=== PATIENT | female | born 1945 | race Caucasian/White ===

== ENCOUNTER → 2018-07-11 10:01 | Outpatient (CLI) | payer MEDICARE, SELFPAY ==
[2018-07-11 12:18] LABS: Prealbumin 25.8 mg/dL (20.0-40.0)
== END ==
PROVIDERS: Visit Provider Family Medicine
DX: E46 Unspecified protein-calorie malnutrition (principal); R79.89 Other specified abnormal findings of blood chemistry
CPT/HCPCS: 36415; 84134

== ENCOUNTER → 2018-08-25 16:47 | Outpatient (CLI) | payer MEDICARE, SELFPAY | PROVIDERS: Family Provider Family Medicine; PCP Family Medicine; Visit Provider Family Medicine | DX: R41.0 Disorientation, unspecified (principal) | CPT/HCPCS: 87086; 87088 ==

== ENCOUNTER → 2018-09-21 16:13 | Outpatient (CLI) | payer MEDICARE, SELFPAY ==
[2018-09-21 17:36] LABS: Absolute Lymphocyte Count 1.07 X10^3/ul (0.83-4.51); Absolute Neutrophil Count 5.8 X10^3/uL (2.0-7.7); Basophil# 0.02 X10^3/uL; Basophil% 0.3 % (0-1); Eosinophil# 0.12 X10^3/uL; Eosinophils% 1.6 % (0-5); Hematocrit 32.3 % (37-47); Hemoglobin 10.2 g/dl (12.0-15.0); Lymphocyte # 1.07 X10^3/ul (4.0); Lymphocyte % 14.3 % (19-41); Mean Corp Hgb Conc 31.6 g/gl (32-36); Mean Corpuscular Volume 101.3 fL (81-99); Mean Platelet Vol. 11.5 fl (6.2-12.0); Monocyte# 0.44 X10^3/uL; Monocyte% 5.9 % (0-10); Neutrophil # 5.82 X10^3/uL (2.7-7.7); Neutrophil % 77.6 % (47-70); Platelet Count 223 K/mm3 (150-450); RBC Distribution Width CV 14.7 % (11.6-14.6); RBC Distribution Width SD 53.1 fl (35.1-43.9); Red Blood Count 3.19 M/mm3 (4.2-5.4); White Blood Count 7.5 K/mm3 (4.4-11.0)
[2018-09-21 17:37] LABS: POSITIVE COUNT NO; POSITIVE DIFFERENTIAL NO; POSITIVE MORPHOLOGY NO
[2018-09-21 17:50] LABS: Vitamin B12 961 pg/mL (211-911)
[2018-09-21 17:53] LABS: ALB/GLOB Ratio 0.9 RATIO (0.9-2.4); AST(SGOT) 21 U/L (15-37); Alanine Aminotransfer ALT/SGPT 12 U/L (13-56); Albumin, Serum 3.7 g/dL (3.2-5.0); Alkaline Phosphatase 98 U/L (45-117); Anion Gap 9 (5-15); BUN 23 mg/dL (7-18); BUN/Creat Ratio 30.3 RATIO (10-20); Calcium,Total 8.7 mg/dL (8.5-10.1); Chloride 99 mmol/L (98-107); Creatinine, Serum 0.76 mg/dL (0.55-1.02); EST Glomerular Filtration Rate 79 mL/min (>60); Est Glom Filt Rate - Afr Amer 96 mL/min (>60); Ferritin 82 ng/mL (8-252); Globulin 3.9 g/dL (2.2-4.2); Glucose 136 mg/dL (74-106); Iron 32 ug/dL (50-170); Potassium 3.6 mmol/L (3.5-5.1); Protein, Total 7.6 g/dL (6.4-8.2); Sodium Level 136 mmol/L (136-145)
--- OUTSIDE RECORDS SUMMARY | 2018-11-07 21:52 | XMS RPT_ITS ---
:1945 Author Organization OHIP Care Team Providers Name Role Phone MARICARMEN ZUÑIGA Admitting Unavailable MARICARMEN ZUÑIGA Attending Unavailable TONYA RONDON Primary Care Unavailable YAKOV SUAZO Consulting Unavailable MARICARMEN ZUÑIGA Procedure Practitioner Unavailable SAMAN GREY Consulting Unavailable MARICARMEN ZUÑIGA Admitting Unavailable MARICARMEN ZUÑIGA Attending Unavailable TONAY RONDON Primary Care Unavailable DR. TONYA RONDON DO Attending Unavailable DR. TONYA RONDON DO Primary Care Unavailable Maricarmen Zuñiga Attending Unavailable PROVIDER, UNKNOWN Referring Unavailable Tonya Rondon Primary Care Unavailable GIGI WEBB Attending Unavailable Joseluis, Wu Gonzalez Admitting Unavailable Joseluis, Wu Gonzalez Attending Unavailable Joseluis, Wu Gonzalez Referring Unavailable Jhoana Gilliam Primary Care Unavailable Tonya Rondon Attending Unavailable Eric Sierra Primary Care Unavailable Tonya Rondon Attending Unavailable Eric Sierra Attending Unavailable Eric Sierra Primary Care Unavailable PROBLEMS PROBLEMS DATE TYPE CONDITION / CODE ATTENDING STATUS SOURCE 08/25/2018 Unknown R41.0 - Eric Sierra Active [place] Disorientation, Community unspecified / Hospital R41.0(ICD-10) Repository 08/17/2018 Active UNI PRIM CHONKO, Active [place] OSTEOARTHRITIS RT [facility] HIP / M16.11(ICD-10) Repository 08/17/2018 Principle UNI PRIM CHONKO, Active [place] Diagnosis OSTEOARTHRITIS RT [facility] HIP / M16.11(ICD-10) Repository 08/17/2018 Secondary PARKINSONS DISEASE / CHONKO, Active [place] Diagnosis G20(ICD-10) [facility] Hospital Repository 08/17/2018 Secondary ANXIETY DISORDER CHONKO, Active [place] Diagnosis UNSPECIFIED / [facility] F41.9(ICD-10) Repository 08/17/2018 Secondary PRESENCE LEFT CHONKO, Active [place] Diagnosis ARTIFICIAL HIP JOINT [facility] / Z96.642(ICD-10) Repository 08/17/2018 Secondary NURSING HOME USE NSAID CHONKO, Active [place] Diagnosis / Z79.1(ICD-10) [facility] Repository 08/04/2018 Active ENCOUNTER OTHER CHONKO, Active [place] PREPROCEDURAL EXAM / [facility] Z01.818(ICD-10) Repository 08/04/2018 Principle ENCOUNTER OTHER CHONKO, Active [place] Diagnosis PREPROCEDURAL EXAM / [facility] Z01.818(ICD-10) Repository 08/04/2018 Secondary UNI PRIM CHONKO, Active [place] Diagnosis OSTEOARTHRITIS RT [facility] HIP / M16.11(ICD-10) Repository 07/11/2018 Unknown E46 - Unspecified Malys, Tonya Active [place] protein-calorie Community malnutrition / Hospital E46(ICD-10) Repository 07/11/2018 Unknown R79.89 - Other Malys, Tonya Active [place] specified abnormal Community findings of blood Hospital chemistry / Repository R79.89(ICD-10) 04/20/2018 Admitting Unilateral primary Chonko, Active [facility] Diagnosis osteoarthritis, Maricarmen System right hip / Repository M16.11(ICD-10) PROCEDURES PROCEDURES DATE CODE DESCRIPTION STATUS SOURCE 08/08/2018 [id number](ICD-1 REPLACEMENT OF RIGHT Completed [place] 0) HIP JOINT WITH METAL Hospital Repository ON POLYETHYLENE SYNTHETIC SUBSTITUTE, UNCEMENTED, OPEN APPROACH RESULTS RESULTS PROGRESS Observed: 10/03/2018 Status: COMPLETED Source: [place] [address]:[address] [facility] REPOSITORY HNO ID: [id number] Author: Gigi Webb Service: (none) Author Type: Physician Type: Progress Notes Filed: 10/03/2018 1:02 PM Note Text: Tonya Rondon DO [address] [address] I had the pleasure of seeing Ms. France for follow up today. As you know she is a 72 year old right-handed female with a history of Idiopathic Parkinson's Disease since 2009 . The patient is seen along with family. History of Present Illness: She was last seen at in March we had decreased her interval from 4 hrs to 3.5 and added a dose. She did this but went back to 4 doses but at 3.5 hours because she sleeps more and it was hard taking medication 5 times a day. We had considered but not tried Rytary. She recently had her right hip replaced. She denies problems with balance and has not fallen. She denies problems with lightheadedness on standing. She denies problems with swallowing and denies problems with her speech. She has difficulty sleeping at night. Gets up and is anxious at times. She admits to problems with depression and anxiety. She admits to problems with memory. She has trouble with names. She admits to problems with hallucinations or delusions. This was when she was in the hospital with pain medications. Her medications are working in 20 minutes, and lasts for 3 hours. her benefit from medication is reliable. She hasn't had any more dyskinesia. Parkinson's Medications: 7AM 1030AM 2PM 530PM Bedtime Sinemet 25/100 1 1 1 1 Rasagiline 1 mg 1 Clonazepam 0.5 mg 1 Previous Parkinson's Medications: Carbidopa/levodopa and Rasagiline Allergies: Allergies As of Date: 10/03/2018 Allergen Noted Reaction VICODIN [HYDROCODONE-ACETAMINOPHE*10/31/2009 GI Upset Fully Assessed 10/03/2018 Current Medications: Current Outpatient Prescriptions: cyanocobalamin, vitamin B-12, (B-12 DOTS ORAL) Take by mouth once daily. ferrous sulfate (SLOW FE ORAL) Take by mouth. carbidopa-levodopa (SINEMET 25-100) 25-100 mg per tablet clonazePAM (KLONOPIN) 0.5 mg tablet Take 1 tablet by mouth daily at bedtime for 180 days. mirtazapine (REMERON) 15 mg tablet Take 1 tablet by mouth daily at bedtime. RASAGILINE MESYLATE (AZILECT ORAL) Take by mouth. No current facility-administered medications for this visit. Objective: BP 119/63 Pulse 87 Ht 5' 3 (1.60m) Wt 120 lb (54.4kg) SpO2 100% BMI 21.26 kg/(m2). General Description of Patient: Well appearing, comfortable Head:normocephalic, atraumatic Extremities: No leg edema, pulses intact, no rash or venous stasis changes. NEUROLOGIC: Mental Status: The patient is alert and oriented to person, place, date and situation Cranial Nerves: CN II-XII are intact. Motor: Motor strength is MRC 5/5 throughout See UPDRS. Movement disorders examination: To quantify parkinsonism, Part III of the Unified Parkinson?s Disease Rating Scale was performed and detailed in the succeeding sections in this report. Please see the neurological health status section or the next paragraph for details. Each item is scored from 0 to 4. In general, a score of 0 means normal; 1 means mild; 2 means moderate; 3 means moderate to severe; 4 means severe. Based on today's exam the patient is Rishi's and Yahr stage 2.5 (Mild bilateral disease, with recovery on pull test. Coordination/Gait: Normal base, Posture normal, Stride length good Sensory: Normal fine touch. Except numbness bilaterally laterally in both legs into lateral aspect of foot and posteriorly. Reflexes: Deep tendon reflexes are 2+ and symmetric throughout and bilateral plantar responses are flexor Parkinson Scales Performed: TIME 10:57 AM TIME OF LAST MEDICATION 7:00 AM SPEECH ON 1 FACIAL EXPRESSION ON 1 REST TREMOR - CRANIAL ON 0 REST TREMOR - HANDS RT ON 0 REST TREMOR - HANDS LT ON 0 REST TREMOR - FEET RT ON 0 REST TREMOR - FEET LT ON 0 ACTION TREMOR - RT ON 0 ACTION TREMOR - LT ON 0 RIGIDITY - NECK ON 1 RIGIDITY - UE - RT ON 1 RIGIDITY - UE - LT ON 1 RIGIDITY - LE - RT ON 0 RIGIDITY - LE - LT ON 0 FINGER TAPS - RT ON 0 FINGER TAPS - LT ON 1 HAND PASSENGER SERVICE AGENT - RT ON 1 HAND PASSENGER SERVICE AGENT - LT ON 2 PRONATE/SUPINATE - RT ON 1 PRONATE/SUPINATE - LT ON 2 LEG AGILITY - RT ON 1 LEG AGILITY - LT ON 2 ARISE FROM CHAIR ON 1 POSTURE ON 1 GAIT ON 1 POSTURAL STABILITY ON 1 BODY BRADYKINESIA ON 1 Assessment and Plan: Ms. France is a right-handed 72 year old female with idiopathic Parkinson's disease with left greater than right akinetic-rigid symptoms. Parkinson's disease (hcc) (primary encounter diagnosis) Depression, unspecified depression type Lumbar radiculopathy Plan: 1. Parkinson's disease - Stable, No changes today. 2. Start Remeron (Mirtazepine) 15 mg at bedtime - This may help sleep, depression, anxiety and appetite. Parkinson's Medications: 7AM 1030AM 2PM 530PM Bedtime Sinemet 25/100 1 1 1 1 Rasagiline 1 mg 1 Remeron 15 mg 1 Clonazepam 0.5 mg 1 Follow up: 4 months. Medical decision making was high complexity due to patient's, multiple symptoms, advancing disease, diagnostic difficulties. Total time spent in direct consultation was 40 minutes. Greater than 50% of the visit was spent counseling the patient. Thank you for allowing me to be part of the clinical care of this patient! I look forward to continued participation in the patient?s care with you. Please do not hesitate to call with any questions. Sincerely, Gigi Webb MD Staff Neurologist [facility] CNOV Observed: 10/03/2018 Status: COMPLETED Source: [place] 10:40 AM [facility] REPOSITORY Office Visit ([id number]) JOSEP FRANCE ([id number]) 1945 F Date Time Provider Department 10/03/18 10:40 AM GIGI WEBB [id number] During your visit today, we recorded the following information about you: Pulse Blood pressure Weight Height 87/minute 119/63 54.4 kg 1.6 m Gigi Webb MD 10/03/2018 1:02 PM Signed Tonya Rondon DO [address] [place] [address] I had the pleasure of seeing Ms. France for follow up today. As you know she is a 72 year old right-handed female with a history of Idiopathic Parkinson's Disease since 2009 . The patient is seen along with family. History of Present Illness: She was last seen at in March we had decreased her interval from 4 hrs to 3.5 and added a dose. She did this but went back to 4 doses but at 3.5 hours because she sleeps more and it was hard taking medication 5 times a day. We had considered but not tried Rytary. She recently had her right hip replaced. She denies problems with balance and has not fallen. She denies problems with lightheadedness on standing. She denies problems with swallowing and denies problems with her speech. She has difficulty sleeping at night. Gets up and is anxious at times. She admits to problems with depression and anxiety. She admits to problems with memory. She has trouble with names. She admits to problems with hallucinations or delusions. This was when she was in the hospital with pain medications. Her medications are working in 20 minutes, and lasts for 3 hours. her benefit from medication is reliable. She hasn't had any more dyskinesia. Parkinson's Medications: 7AM 1030AM 2PM 530PM Bedtime Sinemet 25/100 1 1 1 1 Rasagiline 1 mg 1 Clonazepam 0.5 mg 1 Previous Parkinson's Medications: Carbidopa/levodopa and Rasagiline Allergies: Allergies As of Date: 10/03/2018 Allergen Noted Reaction VICODIN [HYDROCODONE-ACETAMINOPHE*10/31/2009 GI Upset Fully Assessed 10/03/2018 Current Medications: Current Outpatient Prescriptions: cyanocobalamin, vitamin B-12, (B-12 DOTS ORAL) Take by mouth once daily. ferrous sulfate (SLOW FE ORAL) Take by mouth. carbidopa-levodopa (SINEMET 25-100) 25-100 mg per tablet clonazePAM (KLONOPIN) 0.5 mg tablet Take 1 tablet by mouth daily at bedtime for 180 days. mirtazapine (REMERON) 15 mg tablet Take 1 tablet by mouth daily at bedtime. RASAGILINE MESYLATE (AZILECT ORAL) Take by mouth. No current facility-administered medications for this visit. Objective: BP 119/63 Pulse 87 Ht 5' 3 (1.60m) Wt 120 lb (54.4kg) SpO2 100% BMI 21.26 kg/(m2). General Description of Patient: Well appearing, comfortable Head:normocephalic, atraumatic Extremities: No leg edema, pulses intact, no rash or venous stasis changes. NEUROLOGIC: Mental Status: The patient is alert and oriented to person, place, date and situation Cranial Nerves: CN II-XII are intact. Motor: Motor strength is MRC 5/5 throughout See UPDRS. Movement disorders examination: To quantify parkinsonism, Part III of the Unified Parkinson?s Disease Rating Scale was performed and detailed in the succeeding sections in this report. Please see the neurological health status section or the next paragraph for details. Each item is scored from 0 to 4. In general, a score of 0 means normal; 1 means mild; 2 means moderate; 3 means moderate to severe; 4 means severe. Based on today's exam the patient is Rishi's and Yahr stage 2.5 (Mild bilateral disease, with recovery on pull test. Coordination/Gait: Normal base, Posture normal, Stride length good Sensory: Normal fine touch. Except numbness bilaterally laterally in both legs into lateral aspect of foot and posteriorly. Reflexes: Deep tendon reflexes are 2+ and symmetric throughout and bilateral plantar responses are flexor Parkinson Scales Performed: TIME 10:57 AM TIME OF LAST MEDICATION 7:00 AM SPEECH ON 1 FACIAL EXPRESSION ON 1 REST TREMOR - CRANIAL ON 0 REST TREMOR - HANDS RT ON 0 REST TREMOR - HANDS LT ON 0 REST TREMOR - FEET RT ON 0 REST TREMOR - FEET LT ON 0 ACTION TREMOR - RT ON 0 ACTION TREMOR - LT ON 0 RIGIDITY - NECK ON 1 RIGIDITY - UE - RT ON 1 RIGIDITY - UE - LT ON 1 RIGIDITY - LE - RT ON 0 RIGIDITY - LE - LT ON 0 FINGER TAPS - RT ON 0 FINGER TAPS - LT ON 1 HAND PASSENGER SERVICE AGENT - RT ON 1 HAND PASSENGER SERVICE AGENT - LT ON 2 PRONATE/SUPINATE - RT ON 1 PRONATE/SUPINATE - LT ON 2 LEG AGILITY - RT ON 1 LEG AGILITY - LT ON 2 ARISE FROM CHAIR ON 1 POSTURE ON 1 GAIT ON 1 POSTURAL STABILITY ON 1 BODY BRADYKINESIA ON 1 Assessment and Plan: Ms. France is a right-handed 72 year old female with idiopathic Parkinson's disease with left greater than right akinetic-rigid symptoms. Parkinson's disease (hcc) (primary encounter diagnosis) Depression, unspecified depression type Lumbar radiculopathy Plan: 1. Parkinson's disease - Stable, No changes today. 2. Start Remeron (Mirtazepine) 15 mg at bedtime - This may help sleep, depression, anxiety and appetite. Parkinson's Medications: 7AM 1030AM 2PM 530PM Bedtime Sinemet 25/100 1 1 1 1 Rasagiline 1 mg 1 Remeron 15 mg 1 Clonazepam 0.5 mg 1 Follow up: 4 months. Medical decision making was high complexity due to patient's, multiple symptoms, advancing disease, diagnostic difficulties. Total time spent in direct consultation was 40 minutes. Greater than 50% of the visit was spent counseling the patient. Thank you for allowing me to be part of the clinical care of this patient! I look forward to continued participation in the patient?s care with you. Please do not hesitate to call with any questions. Sincerely, Gigi Webb MD Staff Neurologist [facility] Gigi Webb MD 10/03/2018 11:17 AM Addendum It was a pleasure to see you today. We addressed the following diagnoses: 1. Parkinson's disease (hcc) (primary encounter diagnosis) 2. Depression, unspecified depression type 3. Lumbar radiculopathy My recommendations are as follows: 1. Start Remeron (Mirtazepine) 15 mg at bedtime - This may help sleep, depression, anxiety and appetite. Parkinson's Medications: 7AM 1030AM 2PM 530PM Bedtime Sinemet 25/100 1 1 1 1 Rasagiline 1 mg 1 Remeron 15 mg 1 Clonazepam 0.5 mg 1 We would like to see you back in 4 months. If there are any concerns in the interim please call or you can send a message through [employer]. You can also now schedule and select appointments through [employer]. My office number is [phone]. Gigi Webb MD Referring Provider: SELF [200] Allergies As of Date: 10/03/2018 Noted Allergy Reaction VICODIN (HYDROCODONE-ACETAMINOPHE*10/31/2009 8 - GI Upset Date Reviewed: 10/03/2018 Reviewed by: Bhavana Salgado Ma - Fully Assessed Reason for Visit: Established Patient [175] Primary Visit Diagnosis:Parkinson's disease (HCC) [G20] Other Visit Diagnoses:Depression, unspecified depression type [F32.9] Lumbar radiculopathy [M54.16] Order(s):mirtazapine (REMERON) 15 mg tabletTake 1 tablet by mouth daily at bedtime.Disp: 30 tabletRfl: 11 Prescriptions as of 10/03/2018 Sig: B-12 DOTS ORAL Take by mouth once daily. SLOW FE ORAL Take by mouth. CARBIDOPA 25 MG-LEVODOPA 100 * CLONAZEPAM 0.5 MG TABLET Take 1 tablet by mouth daily * MIRTAZAPINE 15 MG TABLET Take 1 tablet by mouth daily * AZILECT ORAL Take by mouth. Problem List As Of Date 10/03/2018 Noted Resolved Hip pain [M25.559] INVALID FOR* Dysphagia, unspecified [R13.10] INVALID FOR* Senile cataract [H25.9] 07/31/2016 Vitreous degeneration [H43.819] Pseudophakia of right eye [Z96.1] INVALID FOR*07/31/2016 Pseudophakia [Z96.1] INVALID FOR* Other instructions from your clinician: It was a pleasure to see you today. We addressed the following diagnoses: 1. Parkinson's disease (hcc) (primary encounter diagnosis) 2. Depression, unspecified depression type 3. Lumbar radiculopathy My recommendations are as follows: 1. Start Remeron (Mirtazepine) 15 mg at bedtime - This may help sleep, depression, anxiety and appetite. Parkinson's Medications: 7AM 1030AM 2PM 530PM Bedtime Sinemet 25/100 1 1 1 1 Rasagiline 1 mg 1 Remeron 15 mg 1 Clonazepam 0.5 mg 1 We would like to see you back in 4 months. If there are any concerns in the interim please call or you can send a message through [employer]. You can also now schedule and select appointments through [employer]. My office number is [phone]. Gigi Webb MD Prescriptions ordered this encounter Disp Refills Start End MIRTAZAPINE 15 MG TABLET 30 t* 11 10/03/2018 10/03/2019 Route: ORAL Sig: Take 1 tablet by mouth daily at bedtime. Disposition: Return in about 4 months (around 02/01/2019) for Parkinson's Disease, [facility] preferred., Can be seen with Mendy Webb NP. Follow-up and Disposition History Recorded Questionnaire: UPDRS - MOTOR EXAMINATION ON time 1 -> 10:57 AM TIME LAST MED 1 -> 7:00 AM SPEECH ON -> 1 FACIAL EXPRESSION ON -> 1 REST TREMOR - CRANIAL ON -> 0 REST TREMOR - HANDS RT ON -> 0 REST TREMOR - HANDS LT ON -> 0 REST TREMOR - FEET RT ON -> 0 REST TREMOR - FEET LT ON -> 0 ACTION TREMOR - RT ON -> 0 ACTION TREMOR - LT ON -> 0 RIGIDITY - NECK ON -> 1 RIGIDITY - UE - RT ON -> 1 RIGIDITY - UE - LT ON -> 1 RIGIDITY - LE - RT ON -> 0 RIGIDITY - LE - LT ON -> 0 FINGER TAPS - RT ON -> 0 FINGER TAPS - LT ON -> 1 HAND PASSENGER SERVICE AGENT - RT ON -> 1 HAND PASSENGER SERVICE AGENT - LT ON -> 2 PRONATE/SUPINATE - RT ON -> 1 PRONATE/SUPINATE - LT ON -> 2 LEG AGILITY - RT ON -> 1 LEG AGILITY - LT ON -> 2 ARISE FROM CHAIR ON -> 1 POSTURE ON -> 1 GAIT ON -> 1 POSTURAL STABILITY ON -> 1 BODY BRADYKINESIA ON -> 1 Encounter Status:Closed by GIGI WEBB on 10/03/18 CBC W/DIFF, AUTOMATED Collected: 09/21/2018 Status: F Source: [place] 4:15 PM [facility] REPOSITORY TYPE CODE TESTS RESULT OUT OF RANGE REFERENCE UNITS LAB L100.1000 4.4-11.0 K/mm3 Normal WBC 7.5 LAB L100.1200 4.2-5.4 M/mm3 Low RBC 3.19 LAB L100.1300 12.0-15.0 g/dl Low HGB 10.2 LAB L100.1400 37-47 % Low HCT 32.3 LAB L100.1500 81-99 fL High MCV 101.3 LAB L100.1600 27.0-32.0 pg Normal MCH 32.0 LAB L100.1700 32-36 g/gl Low MCHC 31.6 LAB L100.1810 11.6-14.6 % High RDW CV 14.7 LAB L100.1820 35.1-43.9 fl High RDW SD 53.1 LAB L100.1900 150-450 K/mm3 Normal PLT 223 LAB L100.2000 6.2-12.0 fl Normal MPV 11.5 LAB L100.2100 47-70 % High NEUT% 77.6 LAB L100.2200 19-41 % Low LY% 14.3 LAB L100.2300 0-10 % Normal MONO% 5.9 LAB L100.2400 0-5 % Normal EO% 1.6 LAB L100.2500 0-1 % Normal BASO% 0.3 LAB L100.2550 0.0-0.9 % Normal IM GRAN % 0.300 Result Comment: IG% - Immature Granulocytes (promyelocytes, myelocytes and metamyelocytes) > 1% indicates that a LEFT SHIFT is Present. LAB L100.2620 2.0-7.7 X10 3/uL Normal Absolute Neut 5.8 LAB L100.2720 0.83-4.51 X10 3/ul Normal Absolute Lymph 1.07 Performed By: #### L100.0100 #### [facility] [address] [place], [place], [address] VITAMIN B12 Collected: 09/21/2018 Status: F Source: [place] 4:15 PM [facility] REPOSITORY TYPE CODE TESTS RESULT OUT OF REFERENCE UNITS RANGE LAB L503.0105 211-911 pg/mL High Vitamin B12 961 Performed By: #### L503.0105 #### [facility] [address] [place], [address] COMPREHENSIVE METABOLIC Collected: 09/21/2018 Status: F Source: [facility] 4:15 PM [facility] REPOSITORY TYPE CODE TESTS RESULT OUT OF RANGE REFERENCE UNITS LAB L501.0100 74-106 mg/dL High GLU 136 Result Comment: Fasting Glucose result greater than or equal to 126 mg/dL suggests DIABETES MELLITUS per A.D.A. criteria. Please note revised GLUCOSE reference range effective 2017. LAB L501.1000 7-18 mg/dL High BUN 23 LAB L501.1100 0.55-1.02 mg/dL Normal CREAT,SERUM 0.76 Result Comment: The validity of the calculated GFR AND GFRAA in patients over 70 years has not been determined. Clinical correlation is essential. LAB L501.1110 >60 mL/min Normal EST GFR 79 Result Comment: Non- GFR Calc LAB L501.1115 >60 mL/min Normal EST GFR - AA 96 Result Comment: GFR Calc LAB L501.1300 10-20 RATIO High BUN/CRE 30.3 LAB L501.1500 6.4-8.2 g/dL T Normal PROT 7.6 LAB L501.1800 3.2-5.0 g/dL Normal ALB 3.7 LAB L501.1950 2.2-4.2 g/dL Normal GLOB 3.9 LAB L501.2000 0.9-2.4 RATIO Normal A/G 0.9 LAB L501.2200 8.5-10.1 mg/dL CA Normal 8.7 LAB L501.4100 15-37 U/L Normal AST 21 LAB L501.4305 45-117 U/L Normal ALK P 98 LAB L501.4405 13-56 U/L Low ALT 12 LAB L501.4600 0.20-1.00 mg/dL T Normal BILI 0.30 LAB L501.5300 136-145 mmol/L NA Normal 136 LAB L501.5600 3.5-5.1 mmol/L K Normal 3.6 LAB L501.5900 98-107 mmol/L CL Normal 99 LAB L501.6100 21.0-32.0 mmol/L Normal CO2 28.0 LAB L501.6200 5-15 Normal GAP 9 Performed By: #### L500.4050, L503.6150, L503.6550 #### [facility] [address] [place], [address] IRON Collected: 09/21/2018 Status: F Source: [place] 4:15 PM [facility] REPOSITORY TYPE CODE TESTS RESULT OUT OF RANGE REFERENCE UNITS LAB L503.6150 50-170 ug/dL Low IRON 32 Performed By: #### L500.4050, L503.6150, L503.6550 #### [facility] [address] [place], [address] FERRITIN Collected: 09/21/2018 Status: F Source: [place] 4:15 PM [facility] REPOSITORY TYPE CODE TESTS RESULT OUT OF RANGE REFERENCE UNITS LAB L503.6550 8-252 ng/mL Normal FERRITIN 82 Performed By: #### L500.4050, L503.6150, L503.6550 #### [facility] [address] [place], [address] Observed: 08/25/2018 Status: F Source: [place] CULTURE, URINE 4:50 PM [facility] REPOSITORY Urine Culture Below infection level. ORGANISM 1: Mixed Gram Pos AND Gram Neg Org Meno Count 1000-10,000 Performed By: #### M100.0650 #### [facility] [address] [place], [address] XR CHEST PA AND Observed: 08/03/2018 Status: F Source: [facility] 1:02 PM [facility] REPOSITORY Clinical indications: Presurgical evaluation Views: 2 Comparisons: None Findings: Heart: Within normal limits. Mediastinum: Unremarkable. Lungs: Markedly hyperexpanded, with flattening of the hemidiaphragms and an increase in the overall AP dimensions of the thorax. Interstitium is diffusely prominent with moderate distortion of architecture. No acute infiltrate or effusion. No evidence of CHF or pneumothorax. Calcified granuloma is noted in the left upper lung. Osseous and soft tissue structures: Generally intact. Impression: Findings consistent with underlying obstructive lung disease, as detailed above. No definite evidence of new acute process or interval change when compared with previous exam. Report Dictated on Authenticated by: Lonny Zhou On: 08/03/2018 13:00 Read by: LONNY ZHOU MD Date: 08/03/2018 13:00 CBC WITH DIFF Collected: 08/03/2018 Status: F Source: [facility] 11:06 AM HOSPITAL REPOSITORY TYPE CODE TESTS RESULT OUT OF RANGE REFERENCE UNITS LAB WBC(LOINC) 3.6-10.3 x(10)3/cumm Normal WBC 5.6 LAB RBC(LOINC) 3.90-5.10 X(10)6/cumm Low RBC 3.71 LAB HGB(LOINC) 11.5-15.5 gm/dL Normal Hgb 12.1 LAB HCT(LOINC) 34.6-45.0 % Normal Hct 35.8 LAB MCV(LOINC) 81.3-96.7 fL Normal MCV 96.6 LAB MCH(LOINC) 27.2-33.6 pg Normal MCH 32.5 LAB MCHC(LOINC) 32.9-35.3 gm/dL Normal MCHC 33.7 LAB RDW(LOINC) 11.1-15.3 % Normal RDW 14.1 LAB PLT(LOINC) 138-367 x(10)3/cumm Normal PLT 186 LAB MPV(LOINC) 6.4-10.0 fL Normal MPV 9.7 LAB NE%(LOINC) 44.9-78.8 % Normal NE% 64.7 LAB LY%(LOINC) 12.2-42.6 % Normal LY% 24.9 LAB MO%(LOINC) 3.3-11.6 % Normal MO% 8.5 LAB EO%(LOINC) 0.0-6.1 % Normal EO% 1.4 LAB BA%(LOINC) 0.0-1.0 % Normal BA% 0.5 LAB NE#(LOINC) 1.3-7.4 x(10)3/cumm Normal NE# 3.6 LAB LY#(LOINC) 0.8-2.9 x(10)3/cumm Normal LY# 1.4 LAB MO#(LOINC) 0.2-0.8 x(10)3/cumm Normal MO# 0.5 LAB EO#(LOINC) 0.0-0.4 x(10)3/cumm Normal EO# 0.1 LAB BA#(LOINC) 0.0-0.1 x(10)3/cumm Normal BA# 0.0 LAB RBCMOR(LOIN C) RBC Morph LAB RBCMOR+(AVE NC) RBC Morph cont LAB PLTMOR(LOIN C) Plt Morph LAB WBCMOR(LOIN C) WBC Morph Performed By: #### CBCDIFF #### [address] [address] BASIC METABOLIC PANEL Collected: 08/03/2018 Status: F Source: [place] 11:06 AM [facility] REPOSITORY TYPE CODE TESTS RESULT OUT OF RANGE REFERENCE UNITS LAB NA(LOINC) 136-145 mmol/L Normal Sodium 139 LAB K(LOINC) 3.5-5.1 mmol/L Normal Potassium 4.2 LAB CL(LOINC) 98-107 mmol/L Normal Chloride 105 LAB C02(LOINC) 21-32 mmol/L C02 Normal 30 LAB GLU(LOINC) 74-106 mg/dL Normal Glucose 94 LAB BUN(LOINC) 7-18 mg/dL High BUN 22 LAB CREAT(LOIN 0.60-1.30 mg/dL C) Creat Normal 0.69 LAB CA(LOINC) 8.5-10.1 mg/dL Normal Calcium 8.9 LAB EGFR(LOINC >=60 mL/min/1.73 ) sqm eGFR Normal >60 LAB EGFR >=60 mL/min/1.73 AA(LOINC) sqm eGFR Normal -Amer >60 LAB ANGAP(LOIN C) Anion Normal Gap 4 Performed By: #### BMP #### [place] [id number] TYPE AND SCREEN Collected: 08/03/2018 Status: F Source: [facility] 11:06 AM HOSPITAL REPOSITORY TYPE CODE TESTS RESULT OUT OF RANGE REFERENCE UNITS LAB ABO(LOINC) B Patient ABO LAB RH(LOINC) Abnormal Patient Rh Positive LAB AB NEGATIVE SCREEN(AVE Normal NC) Ab Screen Negative Performed By: #### TYPSCRN #### [address] [address] PREALBUMIN Collected: 07/11/2018 Status: F Source: [place] 10:04 AM [facility] REPOSITORY TYPE CODE TESTS RESULT OUT OF RANGE REFERENCE UNITS LAB L506.0500 20.0-40.0 mg/dL Normal PREALBUMIN 25.8 Performed By: #### L506.0500 #### [facility] [address] [place], [place], [id number] CR HIP W/ PELVIS 2 Observed: 04/20/2018 Status: F Source: [facility] OR 3 VIEWS RIGHT 1:50 PM SYSTEM REPOSITORY Patient Name: JOSEP FRANCE Diagnostic Radiology Exam Date/Time 04/20/2018 09:20:01 EDT Exam CR Hip w/ Pelvis 2 or 3 Views Right n Ordering Physician MARICARMEN ZUÑIGA Accession Number [id number] CPT4 Codes 72502 () Reason For Exam RT HIP PAIN Report Examination: Right hip Clinical Indication: Pain. History of fall. Comparison: None Findings: AP view of the pelvis along with AP and frogleg lateral views of the right hip demonstrate no gross evidence of fracture or subluxation. There is severe osteoarthrosis of the right hip including near complete loss of the joint space, subchondral sclerosis and cystic change, and osteophytosis of the acetabulum and femoral head. No radiographic evidence of avascular necrosis. There is a total left hip arthroplasty. Degenerative changes are present at the lumbosacral junction as well as in the sacroiliac joints. No fracture or diastases of the pelvic ring is identified. Impression: No evidence of fracture or dislocation of the right hip. Severe right hip osteoarthrosis including near complete loss of the joint space. Report Dictated on Final Dictating Physician: SRAVANTHI BARRIENTOS Signed Date and Time: 04/20/2018 1:53 pm Signed by: SRAVANTHI BARRIENTOS Transcribed Date and Time: 04/20/2018 1:55 CBC Collected: 04/08/2018 Status: F Source: [facility] 11:31 AM [facility] REPOSITORY TYPE CODE TESTS RESULT OUT OF REFERENCE UNITS RANGE LAB WBC(LOINC) 4.60-10.80 10 3/mcL WBC 6.80 LAB RBCCT(LOINC 4.20-5.40 10 6/mcL ) Low RBC 3.65 LAB HGB(LOINC) 12.0-16.0 G/dL Low Hgb 11.9 LAB HCT(LOINC) 37.0-47.0 % Low Hct 35.3 LAB MCV(LOINC) 80.0-94.0 fL High MCV 96.9 LAB MCH(LOINC) 27.0-31.2 pg High MCH 32.6 LAB MCHC(LOINC) 33.0-37.0 G/dL MCHC 33.7 LAB RDW(LOINC) 11.5-14.5 % RDW 14.3 LAB PLT(LOINC) 130-400 10 3/mcL Platelet 181 LAB MPV(LOINC) 7.4-10.4 fL MPV 9.8 Performed By: #### CBC, ADIFF, ANEU, LIP, CMP, GFR, TSH, FT4 #### [address] [address] #### PRALB #### [address] [address] .AUTO DIFF Collected: 04/08/2018 Status: F Source: [facility] 11:31 AM [facility] REPOSITORY TYPE CODE TESTS RESULT OUT OF REFERENCE UNITS RANGE LAB GENEVA(LOINC) 37.0-80.0 % Neutrophil % 66.1 LAB LYM(LOINC) 10.0-50.0 % Lymphocyte % 21.1 LAB MON(LOINC) 1.7-13.0 % Monocyte % 10.4 LAB EO(LOINC) 0.0-7.0 % Eosinophil % 2.1 LAB BAS(LOINC) 0.0-2.5 % Basophil % 0.3 LAB ABLYM(LOIN 0.77-3.85 10 3/mcL C) Lymphocyte, 1.40 Absolute LAB DUSTIN(LOINC 0.15-1.00 10 3/mcL ) Monocyte, 0.70 Absolute LAB AEOS(LOINC 0.00-0.40 10 3/mcL ) Eosinophil, 0.10 Absolute LAB ABAS(LOINC 0.00-0.19 10 3/mcL ) Basophil, 0.00 Absolute Performed By: #### CBC, ADIFF, ANEU, LIP, CMP, GFR, TSH, FT4 #### [address] [address] #### PRALB #### [address] [address] .NEUABS Collected: 04/08/2018 Status: F Source: [facility] 11:31 AM [facility] REPOSITORY TYPE CODE TESTS RESULT OUT OF REFERENCE UNITS RANGE LAB ANEU(LOINC) 2.85-6.16 10 3/mcL Neutrophil, 4.50 Absolute Performed By: #### CBC, ADIFF, ANEU, LIP, CMP, GFR, TSH, FT4 #### [place] [address] [place], [place] [address] #### PRALB #### [facility] [address] [place] [address] LIP Collected: 04/08/2018 Status: F Source: [facility] 11:31 AM [facility] REPOSITORY TYPE CODE TESTS RESULT OUT OF REFERENCE UNITS RANGE LAB LIP(LOINC) 8-78 IU/L Lipase Level 23 Performed By: #### CBC, ADIFF, ANEU, LIP, CMP, GFR, TSH, FT4 #### [place] [address] [place], [place] [address] #### PRALB #### [address] [address] CMP Collected: 04/08/2018 Status: F Source: [facility] 11:31 AM [facility] REPOSITORY TYPE CODE TESTS RESULT OUT OF REFERENCE UNITS RANGE LAB GLU(LOINC) 83-110 mg/dL Glucose Level 100 LAB NA(LOINC) 136-146 mEq/L Sodium Level 137 LAB K(LOINC) 3.5-5.1 mEq/L Potassium Level 4.5 LAB CL(LOINC) 98-107 mEq/L Chloride 99 LAB CO2(LOINC) 23-31 mEq/L CO2 30 LAB EBAL(LOINC mEq/L ) Electrolyte Balance 8.0 LAB BUN(LOINC) 7.0-18.0 mg/dL BUN High 19.9 LAB CRE(LOINC) 0.6-1.2 mg/dL Creatinine Lvl (s) 0.8 LAB BC(LOINC) 7-27 ratio BUN/Creatinine 25 Ratio LAB CA(LOINC) 8.4-10.2 mg/dL Calcium Lvl 9.2 LAB PROT(LOINC 6.0-8.3 G/dL ) Total Protein 7.1 LAB ALB(LOINC) 3.4-4.8 G/dL Albumin Level 4.3 LAB GLB(LOINC) G/dL Globulin 2.8 LAB AG(LOINC) 1.1-2.5 ratio A/G Ratio 1.5 LAB BILT(LOINC 0.2-1.0 mg/dL ) Bili Total 0.3 LAB AP(LOINC) 40-135 IU/L Alk Phos 83 LAB AST(LOINC) 10-40 IU/L AST/SGOT 22 LAB ALT(LOINC) 10-35 IU/L Low ALT/SGPT 6 Performed By: #### CBC, ADIFF, ANEU, LIP, CMP, GFR, TSH, FT4 #### [facility] [address] [place], [place] [address] #### PRALB #### [address] [address] .GFR Collected: 04/08/2018 Status: F Source: [facility] 11:31 AM [facility] REPOSITORY TYPE CODE TESTS RESULT OUT OF REFERENCE UNITS RANGE LAB GFRAA(LOINC ml/min/1.73 ) sqm GFR >60 Faroese Result Comment: GFR Population mean for , Non- Americans Ages 20-29 = 116 mL/min/1.73 sq.m. Ages 30-39 = 107 mL/min/1.73 sq.m. Ages 40-49 = 99 mL/min/1.73 sq.m. Ages 50-59 = 93 mL/min/1.73 sq.m. Ages 60-69 = 85 mL/min/1.73 sq.m. Ages 70+ = 75 mL/min/1.73 sq.m. Chronic Kidney Disease: Less than 60 mL/min/1.73 square meters End Stage Renal Disease: Less than 15 mL/min/1.73 square meters LAB GFRNO(LOINC) ml/min/1.73sqm GFR Non- >60 Result Comment: GFR Population mean for , Non- Americans Ages 20-29 = 116 mL/min/1.73 sq.m. Ages 30-39 = 107 mL/min/1.73 sq.m. Ages 40-49 = 99 mL/min/1.73 sq.m. Ages 50-59 = 93 mL/min/1.73 sq.m. Ages 60-69 = 85 mL/min/1.73 sq.m. Ages 70+ = 75 mL/min/1.73 sq.m. Chronic Kidney Disease: Less than 60 mL/min/1.73 square meters End Stage Renal Disease: Less than 15 mL/min/1.73 square meters Performed By: #### CBC, ADIFF, ANEU, LIP, CMP, GFR, TSH, FT4 #### [place] [address] [place], [place] [address] #### PRALB #### [address] [address] TSH Collected: 04/08/2018 Status: F Source: [facility] 11:31 AM [facility] REPOSITORY TYPE CODE TESTS RESULT OUT OF RANGE REFERENCE UNITS LAB TSH(LOINC) 0.27-4.20 mcIU/mL TSH 1.36 Performed By: #### CBC, ADIFF, ANEU, LIP, CMP, GFR, TSH, FT4 #### [address] [address] #### PRALB #### [address] [address] FT4 Collected: 04/08/2018 Status: F Source: [facility] 11:31 AM [facility] REPOSITORY TYPE CODE TESTS RESULT OUT OF RANGE REFERENCE UNITS LAB FT4(LOINC) 0.6-1.7 ng/mL Free T4 1.1 Performed By: #### CBC, ADIFF, ANEU, LIP, CMP, GFR, TSH, FT4 #### [address] [address] #### PRALB #### [address] [address] PRALB Collected: 04/08/2018 Status: F Source: [facility] 11:31 AM [facility] REPOSITORY TYPE CODE TESTS RESULT OUT OF REFERENCE UNITS RANGE LAB PRALB(LOIN 18.0-38.0 mg/dL C) Low Prealbumin 17.3 Performed By: #### CBC, ADIFF, ANEU, LIP, CMP, GFR, TSH, FT4 #### [address] [address] #### PRALB #### [address] [address] OFFICE VISIT Observed: 04/07/2018 Status: UNK Source: [place] ([id number]) 10:12 AM [facility]OSPITALS REPOSITORY Chief Complaint Parkinson's disease. History of Present Illness JOSEP FRANCE is here for follow-up. She is a right-handed 72 year-old woman with Parkinson's disease since 2009. She said she thought she was doing really well until she fell off a step stool when she dropped a large glass vase. She fell onto her side and said nothing was broken but about two weeks later the leg a nd hip she fell on started really hurting so she has an appointment with an orthopedic surgeon soon. She has also had a cold for the last few weeks. She has not had any other falls, but does lose her ba margoth frequently. She is done with PT but does participate in PD exercise classes. She is currently taking her medications as follows: 7am 11am 3pm 7pm 1 1 1 1 Sinemet 25/100 1Azilect 1mg. Her medications work within 20-30 minutes and lasts 3 hours. By report, there is good compliance with treatment. She has not been having dyskinesia like she was previously. She reports. She is participating in PT. She reports no speech problems and no dysphagia . She said her mouth gets very dry. She does notice it sometimes seems harder to get her food down but she has been sick lately. She does not cough or choke. She reports no orthostatic symptoms. She reports she has anxiety, but no symptoms of depression . She does not report dopamine dysregulation symptoms. She gets down once in a while but does not feel depressed. She thinks her anxiety is better. She reports difficulty falling asleep and difficulty staying asleep, but no acting out of dreams. She reports concern about memory . She has not had any hallucinations recently. Review of Systems Review of systems was completed, reviewed, and scanned into the chart. Active Problems Excessive daytime sleepiness (780.54) (G47.19) Insomnia (780.52) (G47.00) Memory loss (780.93) (R41.3) Orthostatic hypotension (458.0) (I95.1) Parkinson's disease (332.0) (G20) Added by Problem List Migration; 2013-04-30; Moved to [facility] Sep 08 2013 9:05PM REM sleep behavior disorder (327.42) (G47.52) Family History Family history of malignant neoplasm (V16.9) (Z80.9) Family history of cardiovascular disease (V17.49) (Z82.49) Social History Never smoker No alcohol use Allergies Vicodin TABS Recorded By: Tonya Laguerre; 05/08/2014 2:39:59 PM Current Meds Medication NameInstructionReason Carbidopa-Levodopa 25-100 MG Oral TabletTAKE 1 TABLET 4 TIMES DAILY.Parkinson's disease Disability PlacardParkinson's Disease-IndefiniteParkinson's disease Rasagiline Mesylate 1 MG Oral TabletTAKE 1 TABLET BY MOUTH DAILYParkinson's disease ClonazePAM 0.5 MG Oral TabletTAKE 1 TABLET BedtimeREM sleep behavior disorder Vitals Vital Signs Recorded: 06Apr2018 10:01AM Hctkbb591 lb BMI Lucynaldxd62.9 BSA Calculated1.55 Systolic Zblfy703 Diastolic Lying72 Systolic Ynmxbyq091 Diastolic Zjmhbwb21 Systolic Xvlcjaoc069 Diastolic Hpkzaygh48 Heart Rate Lying94 Heart Rate Frvmdyw55 Heart Rate Lgwlepvk239 Physical Exam Her left foot turns in (she said it was due to her hip). It took her 4 steps to turn. She was slightly off balance at times. UPDRS Examination Time of exam: 10:16am. Last medication time: 7:00am. Speech: 0.5 Facial Expression: 2 Rest Tremor: Head: 0 RUE: 0 LUE: 0 RLE: 0 LLE: 0 Action Tremor: RUE: 0 LUE: 0 Rigidity: Neck: 2 RUE: 0 LUE: 0 Finger Taps: RUE: 0.5 LUE: 0.5 Hand Movements: RUE: 0.5 LUE: 0.5 Rapid Alternating Movements: RUE: 0.5 LUE: 0 Leg Agility: RLE: 0.5 LLE: 1.5 Arising from chair: 0.5 Posture: 2 Gait: 1.5 Body Bradykinsia: 1.5 Nayeli and Yahr Stage: Diagnoses/Problems Orthostatic hypotension (458.0) (I95.1) Parkinson's disease (332.0) (G20) Added by Problem List Migration; 2013-04-30; Moved to [facility] Sep 08 2013 9:05PM Memory loss (780.93) (R41.3) REM sleep behavior disorder (327.42) (G47.52) Insomnia (780.52) (G47.00) Orders Patient Treatment Education; Status:Complete; Done: 07Apr2018 Ordered; For:Orthostatic hypotension, Parkinson's disease; Ordered By:Mendy Webb; Changed: From Carbidopa-Levodopa 25-100 MG Oral Tablet TAKE 1 TABLET 4 TIMES DAILY To Carbidopa-Levodopa 25-100 MG Oral Tablet TAKE 1 TABLET 5 TIMES DAILY Rx By: Mendy Webb; Dispense: 90 Days ; #:450 Tablet; Refill: 2;For: Parkinson's disease; HUMZA = N; Print Rx Provider Impressions She is a right-handed 72 year-old woman with Parkinson's disease since 2009. She is still experiencing some mild motor fluctuations causing her to feel awful during her off times. We discussed differ ent medication options including Rytary but ultimately settled on reducing the time between her doses of Sinemet and adding one dose. She had dyskinesia in the past that has since gone away but should i t return and be bothersome or if she does not tolerate this change or it does not help, we will then try Rytary. She did have one fall since she was last here while standing on a step stool. I instructe d her to no longer do this because of the potential risks and she understands especially given the fall caused injury and she will be following up with an orthopedic surgeon soon for evaluation. Also, I would have liked to check a MoCA today but as she is sick I do not feel it is a fair assessment so this will be checked at her next office visit. Patient Discussion/Summary 1. Please make sure you are drinking plenty of water and changing positions slowly as your blood pressure continues to drop when you change positions. This is especially important when you are exercising. 2. Continue exercising. 3. Take 1 tablet of Sinemet at 7am, 10:30am, 2pm, 5:30pm, and 8pm. If the swaying movements return or this is not helping your off time, then we will switch you to the other medication we discussed, Rytary. 4. We will check your memory at your next office visit. 5. Follow up in 3 months or sooner if needed. Signatures Electronically signed by : FRANCE Mark; Apr 07 2018 10:04AM EST (Author) Electronically signed by : Gigi Webb MD; Apr 07 2018 10:12AM EST ALLERGIES ALLERGIES DATE TYPE / CODE NAME / CODE REACTION SEVERITY SOURCE 10/31/2009 DRUG/2580206 HYDROCODONE- GI UPSET [facility] 03(SNOMED ACETAMINOPHE [facility] CT) N Repository Drug Vicodin/3413 Unknown [facility] Allergy/4160 (RXNORM) Hospital [address]27(SNOMED Repository CT) ENCOUNTERS ENCOUNTERS ADMIT/DISCHARGE ACCOUNT NUMBER ADMITTING ENCOUNTER LOCATION SOURCE CLASS 10/03/2018/10/05/20 [id number] Ambulatory [address] Repository 09/21/2018 [id number] Ambulatory [facility] ding:BFHLAB Repository 08/25/2018 [id number] Ambulatory [facility] ding:BFHLAB Repository 08/08/2018/08/11/20 [id number] YOGESH, Inpatient BuildinWR [address] Encounter oom: 352Bed: [facility] Repository 08/03/2018/08/03/20 [id number] YOGESH, Ambulatory Building:OPS [address] Repository 07/11/2018 [id number] Ambulatory [facility] ding:BFHLAB Repository 04/20/2018 [id number] Ambulatory [facility] Repository 04/08/2018/04/08/20 [id number] Ambulatory [address] ding:[facility] Repository 04/06/2018 [id number] Mrs Joseluis. Ambulatory [address] [facility] Repository PAYERS PAYERS ENCOUNTER GUARANTOR PAYER SUBSCRIBER SOURCE 09/21/2018 JOSEP Primary JOSEP [place] [id number] Insurance:ASHLY LARRYB: Community [address] MEDICARE SENIOR [id number] ADVANTAPolicy Number: Repository [id number]: (216) [id number] [phone] () Date:[id number] [address] [place] [address]WR: 09/21/2018 Secondary NOT GIVENUNK [place] Insurance:SELF PAY [facility] Number: Effective Repository Date:2018-09-21 08/25/2018 JOSEP Primary JOSEP [place] [id number] Insurance:[facility]: Community [address] MEDICARE SENIOR [id number], [place] ADVANTAPolicy Number: Repository [id number]: (330) [id number] [phone] (HP) Date:[id number] [address]YZKISJSANNIA ESCALANTE [address]RJ: 08/25/2018 Secondary NOT GIVENUNK [place] Insurance:SELF PAY [facility] Number: Effective Repository Date:2018-08-25 08/08/2018 JOSEP Primary [facility] CHUPPDOB: Insurance:ANTHEM CHUPPDOB: Hospital MEDICARE HMOPolicy [id number] Repository [address] Number: [address] [place], [place] [id number] [place], [place] [address]Veu: ([phone]) Date:[id number] [address] [address]Brt: (HP) ANNIA HERNANDEZ [phone] (HP) [address]JV: 08/03/2018 JOSEP Primary [facility] CHUDOB: Insurance:ANTHEM CHUDOB: [facility] MEDICARE HMOPolicy [id number] Repository [address] Number: [address] [place], [place] [id number] [place], [place] [address]Xvl: (330) Date:[id number] [address] [address]Aiw: (HP) [id number], [place] [phone] (HP) [id number]: 07/11/2018 [id number] [facility]:ANTHEM CHUDOB: [facility] [address] [facility] SENIOR [id number], [place] ADVANTAPolicy Number: Repository [id number]: (330) [id number] [phone] (HP) Date:1100-96-07BI [address]AVGCXXY, [place] [address]HJ: 07/11/2018 Secondary NOT GIVENUNK [place] Insurance:SELF PAY Community [facility] Number: Effective Repository Date:2018-07-11 04/20/2018 [facility]: [facility] Cross Blue [id number] Repository [address] Apt [facility] Number: Fco [place] Effective Date: [id number]: (HP) 04/08/2018 [facility]: Foundation [facility] [id number] Repository [address] Number: [address] [place], [place] [id number] [place], [place] [address]Lvs: (330) Date:2018-04-08 [id number]: [id number] [phone] (HP)Tel: (000) Name:[address] () () [address]Ysfrtln, [place] [phone] (WP) [address]WI: 04/06/2018 [facility]: Insurance:[facility]: [facility] y Number: [id number] Repository [address] [id number] [address] [place] Date:Plan Name:[address] [place], [address]Bhl: ([phone]) [place] [address]Ujj: [phone] (HP) (HP)
== END ==
PROVIDERS: Family Provider Family Medicine; PCP Family Medicine; Visit Provider Family Medicine
DX: G62.9 Polyneuropathy, unspecified (principal); R53.83 Other fatigue
CPT/HCPCS: 36415; 80053; 82607; 82728; 83540; 85025

== ENCOUNTER → 2019-06-29 15:47 | Outpatient (CLI) | payer MEDICARE, SELFPAY | PROVIDERS: Family Provider Family Medicine; PCP Family Medicine; Visit Provider Family Medicine | DX: R35.0 Frequency of micturition (principal) | CPT/HCPCS: 87086; 87088; 87186 ==

== ENCOUNTER → 2020-01-03 | Outpatient (CLI) | payer MEDICARE, SELFPAY | END | disposition home or self-care (01) | LOC: LABSPEC 16:04 | PROVIDERS: PCP Family Medicine; Referring Provider Family Medicine; Visit Provider Family Medicine | DX: R41.0 Disorientation, unspecified (principal); R30.0 Dysuria | CPT/HCPCS: 87086 ==

== ENCOUNTER → 2020-10-10 12:29 | Outpatient (CLI) | payer MEDICARE, SELFPAY ==
[2020-10-10 15:19] LABS: Color, Urine Yellow (Yellow); Glucose, Dipstick Normal (Normal); Ketone-Dipstick 5 mg/dl (Negative); Leukocyte Esterase-Dipstick Negative /ul (Negative); Nitrite-Dipstick Negative (Negative); Occult Blood-Urine 25 /ul (Negative); Protein-Dipstick Negative (Negative); Specific Gravity, Urine 1.015 (1.002-1.030); Urine Bilirubin Dipstick Negative (Negative); Urine Clarity Sl. Cloudy (Clear); Urine Urobilinogen 1 mg/dl (Normal)
== END ==
PROVIDERS: PCP Family Medicine; Referring Provider Family Medicine; Visit Provider Family Medicine
DX: R41.0 Disorientation, unspecified (principal); R35.1 Nocturia
CPT/HCPCS: 81002; 87086; 87088; 87186

== ENCOUNTER → 2021-01-10 10:18 | Outpatient (CLI) | payer MEDICARE, SELFPAY ==
[2021-01-10 12:07] LABS: Absolute Lymphocyte Count 1.03 X10^3/uL (0.83-4.51); Absolute Neutrophil Count 3.9 X10^3/uL (2.0-7.7); Basophil# 0.03 X10^3/uL; Basophil% 0.6 % (0-1); Eosinophil# 0.03 X10^3/uL; Eosinophils% 0.6 % (0-5); Hematocrit 36.6 % (37-47); Hemoglobin 11.6 g/dL (12.0-15.0); Lymphocyte # 1.03 X10^3/ul (4.0); Lymphocyte % 18.9 % (19-41); Mean Corp Hgb Conc 31.7 g/dL (32-36); Mean Corpuscular Hgb 32.9 pg (27.0-32.0); Mean Corpuscular Volume 103.7 fL (81-99); Mean Platelet Vol. 11.3 fl (6.2-12.0); Monocyte# 0.43 X10^3/uL; Monocyte% 7.9 % (0-10); NRBC Flagged by Analyzer 0 % (0-5); Neutrophil # 3.91 X10^3/uL (2.7-7.7); Neutrophil % 71.8 % (47-70); Platelet Count 206 K/mm3 (150-450); RBC Distribution Width CV 13.8 % (11.6-14.6); Red Blood Count 3.53 M/mm3 (4.2-5.4); White Blood Count 5.4 K/mm3 (4.4-11.0)
[2021-01-10 12:30] LABS: Vitamin B12 > 2000 pg/mL (211-911)
[2021-01-10 12:31] LABS: Vitamin D,25 Hydroxy 60.9 ng/mL
[2021-01-10 13:24] LABS: ALB/GLOB Ratio 0.8 RATIO (0.9-2.4); AST(SGOT) 34 U/L (15-37); Alanine Aminotransfer ALT/SGPT 18 U/L (13-56); Albumin, Serum 3.5 g/dL (3.2-5.0); Alkaline Phosphatase 95 U/L (45-117); Anion Gap 3 (5-15); BUN 23 mg/dL (7-18); BUN/Creat Ratio 31.4 RATIO (10-20); Calcium,Total 8.8 mg/dL (8.5-10.1); Chloride 107 mmol/L (98-107); Creatinine, Serum 0.73 mg/dL (0.55-1.02); EST Glomerular Filtration Rate 82 mL/min (>60); Est Glom Filt Rate - Afr Amer 99 mL/min (>60); Globulin 4.3 g/dL (2.2-4.2); Glucose 100 mg/dL (74-106); Potassium 4.2 mmol/L (3.5-5.1); Protein, Total 7.8 g/dL (6.4-8.2); Sodium Level 140 mmol/L (136-145)
== END ==
PROVIDERS: PCP Family Medicine
DX: Z51.81 Encounter for therapeutic drug level monitoring (principal); R53.83 Other fatigue
CPT/HCPCS: 36415; 80053; 82306; 82607; 82746; 85025

== ENCOUNTER → 2021-02-27 17:29 | Outpatient (CLI) | payer MEDICARE, SELFPAY | PROVIDERS: PCP Family Medicine; Referring Provider Family Medicine; Visit Provider Family Medicine | DX: R30.0 Dysuria (principal) | CPT/HCPCS: 87086; 87088 ==

== ENCOUNTER → 2021-04-21 10:36 | Outpatient (CLI) | payer MEDICARE, SELFPAY ==
--- NOTE | 2021-04-21 10:39 | RAD_ITS ---
STUDY: X-RAY - PELVIS AND RIGHT HIP REASON FOR EXAM: Female, 75 years old. Fracture right pelvis. Evaluate healing. TECHNIQUE: 3 views of the pelvis and hip. COMPARISON: None. FINDINGS: There is a non-specific bowel gas pattern. Phleboliths. Generalized osteopenia. Bilateral total hip arthroplasties. Fractures of the right superior and inferior pubic rami with the superior pubic ramus fracture extending into the right acetabulum. Callus formation noted. Near anatomic alignment. RAD/HIP, UNI W/ Pelvis 2-3 Views IMPRESSION: Osteopenia with bilateral total hip arthroplasties. Healing fractures of the right hemipelvis with near-anatomic alignment and no complicating features, as described. Electronically Signed: Silver Hernandez MD at 9:22 EDT , Service support ,
== END ==
PROVIDERS: PCP Family Medicine; Referring Provider Family Medicine; Visit Provider Family Medicine
DX: M25.551 Pain in right hip (principal)
CPT/HCPCS: 73502

== ENCOUNTER → 2022-03-19 | Outpatient (CLI) | payer MEDICARE, SELFPAY ==
[2022-03-19 15:08] LABS: Absolute Lymphocyte Count 1.61 X10^3/uL (0.83-4.51); Absolute Neutrophil Count 4.1 X10^3/uL (2.0-7.7); Basophil# 0.03 X10^3/uL; Basophil% 0.5 % (0-1); Eosinophil# 0.09 X10^3/uL; Eosinophils% 1.4 % (0-5); Hematocrit 35.4 % (37-47); Hemoglobin 11.2 g/dL (12.0-15.0); Lymphocyte # 1.61 X10^3/ul (0.83-4.51); Mean Corp Hgb Conc 31.6 g/dL (32-36); Mean Corpuscular Hgb 32.7 pg (27.0-32.0); Mean Corpuscular Volume 103.5 fL (81-99); Mean Platelet Vol. 11.5 fl (6.2-12.0); Monocyte# 0.62 X10^3/uL; Monocyte% 9.6 % (0-10); NRBC Flagged by Analyzer 0 % (0-5); Neutrophil # 4.08 X10^3/uL (2.7-7.7); Neutrophil % 63.2 % (47-70); Platelet Count 209 K/mm3 (150-450); RBC Distribution Width CV 13.1 % (11.6-14.6); RBC Distribution Width SD 50.2 fl (35.1-43.9); Red Blood Count 3.42 M/mm3 (4.2-5.4); White Blood Count 6.5 K/mm3 (4.4-11.0)
[2022-03-19 15:25] LABS: BUN 26 mg/dL (7-18); Creatinine, Serum 0.77 mg/dL (0.55-1.02); EST Glomerular Filtration Rate 77 mL/min (>60); Glucose 85 mg/dL (74-106)
[2022-03-19 15:26] LABS: ALB/GLOB Ratio 0.9 RATIO (0.9-2.4); AST(SGOT) 24 U/L (15-37); Alanine Aminotransfer ALT/SGPT 18 U/L (13-56); Albumin, Serum 3.8 g/dL (3.2-5.0); Alkaline Phosphatase 70 U/L (45-117); Anion Gap 3 (5-15); BUN/Creat Ratio 33.8 RATIO (10-20); Calcium,Total 8.9 mg/dL (8.5-10.1); Chloride 105 mmol/L (98-107); Est Glom Filt Rate - Afr Amer 93 mL/min (>60); Globulin 4.2 g/dL (2.2-4.2); Iron 76 ug/dL (50-170); Potassium 3.9 mmol/L (3.5-5.1); Sodium Level 139 mmol/L (136-145)
== END | disposition home or self-care (01) ==
LOC: MTLAB 11:31
PROVIDERS: PCP Family Medicine; Referring Provider Family Medicine; Visit Provider Family Medicine
DX: D64.9 Anemia, unspecified (principal); Z51.81 Encounter for therapeutic drug level monitoring
CPT/HCPCS: 36415; 80053; 83540; 85025

== ENCOUNTER → 2022-06-16 | Outpatient (CLI) | payer MEDICARE, SELFPAY ==
[2022-06-16 10:48] LABS: Vitamin B12 > 2000 pg/mL (211-911); Vitamin D,25 Hydroxy 52.1 ng/mL
[2022-06-16 11:00] LABS: Thyroid Stim Hormone (TSH) 1.24 uIU/mL (0.358-3.74)
== END | disposition home or self-care (01) ==
LOC: MTLAB 09:07
PROVIDERS: PCP Family Medicine; Referring Provider Nurse Practitioner; Visit Provider Nurse Practitioner
DX: R41.89 Other symptoms and signs involving cognitive functions and awareness (principal); R53.83 Other fatigue; R79.89 Other specified abnormal findings of blood chemistry; Z51.81 Encounter for therapeutic drug level monitoring
CPT/HCPCS: 36415; 82306; 82607; 82746; 84443

== ENCOUNTER → 2022-06-22 | Outpatient (CLI) | payer MEDICARE, SELFPAY ==
--- NOTE | 2022-06-22 15:46 | RAD_ITS ---
EXAM: XR LEFT WRIST COMPLETE, 3 OR MORE VIEWS CLINICAL INDICATION: Trauma, SWELLING TECHNIQUE: Frontal, lateral and oblique views of the left wrist. This report was created using [employer] report generation technology. COMPARISON: None. FINDINGS: BONES/JOINTS: There appears to be a subtle cortical fracture involving the medial portion of the distal radius without angulation or displacement deformity. No subluxation. SOFT TISSUES: Mild diffuse soft tissue swelling. No radiopaque foreign body. RAD/Wrist min 3 Views IMPRESSION: Acute nondisplaced cortical fracture distal radius. Electronically Signed: Nick Deutsch MD at 16:20 EDT ,
--- NOTE | 2022-06-22 15:47 | RAD_ITS ---
EXAM: XR LEFT HIP WITH PELVIS WHEN PERFORMED, 1 VIEW CLINICAL INDICATION: FALL,SWELLING TECHNIQUE: Frontal view of the left hip with pelvis when performed. This report was created using [employer] report generation technology. COMPARISON: None. FINDINGS: Bilateral total hip arthroplasty with satisfactory alignment and no hardware complications. No acute or healing fracture or malalignment. No unusual lytic or sclerotic lesions of bone. Old healed fracture of the right inferior pubic ramus. Peripheral vascular calcifications along the medial thighs. Stool and gas throughout the colon. No bowel obstruction. RAD/HIP, UNI W/ Pelvis 2-3 Views IMPRESSION: No acute or healing fracture or malalignment. Electronically Signed: Jacky Carson MD at 23:05 EDT ,
== END | disposition home or self-care (01) ==
LOC: MTRAD 15:45
PROVIDERS: PCP Family Medicine; Referring Provider Family Medicine; Visit Provider Family Medicine
DX: M25.552 Pain in left hip (principal); M25.532 Pain in left wrist; W19.XXXA Unspecified fall, initial encounter
CPT/HCPCS: 73110; 73502

== ENCOUNTER → 2023-04-15 | Outpatient (CLI) | payer MEDICARE, SELFPAY ==
[2023-04-15 10:06] LABS: Absolute Lymphocyte Count 1.48 X10^3/uL (0.83-4.51); Absolute Neutrophil Count 3.6 X10^3/uL (2.0-7.7); Basophil# 0.03 X10^3/uL; Basophil% 0.5 % (0-1); Eosinophil# 0.13 X10^3/uL; Eosinophils% 2.3 % (0-5); Hematocrit 35.2 % (37-47); Hemoglobin 11.2 g/dL (12.0-15.0); Lymphocyte # 1.48 X10^3/ul (0.83-4.51); Lymphocyte % 25.6 % (19-41); Mean Corp Hgb Conc 31.8 g/dL (32-36); Mean Corpuscular Hgb 32.7 pg (27.0-32.0); Mean Corpuscular Volume 102.6 fL (81-99); Mean Platelet Vol. 11.3 fl (6.2-12.0); Monocyte# 0.47 X10^3/uL; Monocyte% 8.1 % (0-10); NRBC Flagged by Analyzer 0 % (0-5); Neutrophil # 3.64 X10^3/uL (2.7-7.7); Neutrophil % 63.2 % (47-70); Platelet Count 217 K/mm3 (150-450); RBC Distribution Width CV 14.1 % (11.6-14.6); RBC Distribution Width SD 53.2 fl (35.1-43.9); Red Blood Count 3.43 M/mm3 (4.2-5.4); White Blood Count 5.8 K/mm3 (4.4-11.0)
[2023-04-15 10:10] LABS: Color, Urine Yellow (Yellow); Glucose, Dipstick Normal (Normal); Ketone-Dipstick Negative (Negative); Leukocyte Esterase-Dipstick Negative /ul (Negative); Nitrite-Dipstick Negative (Negative); Occult Blood-Urine Negative /ul (Negative); Protein-Dipstick Negative (Negative); Urine Bilirubin Dipstick Negative (Negative); Urine Clarity Clear (Clear); Urine Urobilinogen Normal (Normal)
[2023-04-15 10:52] LABS: ALB/GLOB Ratio 0.9 RATIO (0.9-2.4); AST(SGOT) 25 U/L (15-37); Alanine Aminotransfer ALT/SGPT 9 U/L (13-56); Albumin, Serum 3.6 g/dL (3.2-5.0); Alkaline Phosphatase 72 U/L (45-117); Anion Gap 7 (5-15); BUN 20 mg/dL (7-18); BUN/Creat Ratio 19.4 RATIO (10-20); Calcium,Total 9.1 mg/dL (8.5-10.1); Chloride 104 mmol/L (98-107); Cholesterol 197 mg/dL (200); Creatinine, Serum 1.03 mg/dL (0.55-1.02); EST Glomerular Filtration Rate 55 mL/min (>60); Est Glom Filt Rate - Afr Amer 66 mL/min (>60); Globulin 4.2 g/dL (2.2-4.2); Glucose 94 mg/dL (74-106); High Density Lipoprotein 77 mg/dL; Potassium 4.2 mmol/L (3.5-5.1); Protein, Total 7.8 g/dL (6.4-8.2); Sodium Level 140 mmol/L (136-145); Triglycerides 45 mg/dL; Very Low Density Lipoprotein 9 mg/dL (5-40)
== END | disposition home or self-care (01) ==
LOC: MTLAB 08:06
PROVIDERS: PCP Family Medicine; Referring Provider Family Medicine; Visit Provider Family Medicine
DX: Z51.81 Encounter for therapeutic drug level monitoring (principal); G20 Parkinson's disease; E78.5 Hyperlipidemia, unspecified
CPT/HCPCS: 36415; 80053; 80061; 81002; 85025; 87086; 87088

== ENCOUNTER → 2023-07-20 | Outpatient (CLI) | payer MEDICARE, SELFPAY ==
[2023-07-20 15:37] LABS: Absolute Lymphocyte Count 0.87 X10^3/uL (0.83-4.51); Basophil# 0.02 X10^3/uL; Basophil% 0.3 % (0-1); Eosinophil# 0.03 X10^3/uL; Eosinophils% 0.4 % (0-5); Hematocrit 34.7 % (37-47); Hemoglobin 10.7 g/dL (12.0-15.0); Lymphocyte # 0.87 X10^3/ul (0.83-4.51); Lymphocyte % 12.1 % (19-41); Mean Corp Hgb Conc 30.8 g/dL (32-36); Mean Corpuscular Hgb 32.4 pg (27.0-32.0); Mean Corpuscular Volume 105.2 fL (81-99); Mean Platelet Vol. 11.4 fl (6.2-12.0); Monocyte# 0.26 X10^3/uL; Monocyte% 3.6 % (0-10); NRBC Flagged by Analyzer 0 % (0-5); Neutrophil % 83.3 % (47-70); Platelet Count 214 K/mm3 (150-450); RBC Distribution Width CV 13.4 % (11.6-14.6); RBC Distribution Width SD 51.9 fl (35.1-43.9); White Blood Count 7.2 K/mm3 (4.4-11.0)
[2023-07-20 16:15] LABS: Vitamin B12 > 2000 pg/mL (211-911); Vitamin D,25 Hydroxy 111.3 ng/mL
[2023-07-20 16:24] LABS: AST(SGOT) 18 U/L (15-37); Alanine Aminotransfer ALT/SGPT 13 U/L (13-56); Albumin, Serum 3.7 g/dL (3.2-5.0); Alkaline Phosphatase 64 U/L (45-117); Anion Gap 4 (5-15); BUN 19 mg/dL (7-18); BUN/Creat Ratio 22.4 RATIO (10-20); Calcium,Total 8.8 mg/dL (8.5-10.1); Chloride 104 mmol/L (98-107); Creatinine, Serum 0.85 mg/dL (0.55-1.02); EST Glomerular Filtration Rate 68 mL/min (>60); Est Glom Filt Rate - Afr Amer 83 mL/min (>60); Ferritin 99 ng/mL (8-252); Globulin 3.8 g/dL (2.2-4.2); Glucose 105 mg/dL (74-106); Iron 68 ug/dL (50-170); Potassium 3.9 mmol/L (3.5-5.1); Protein, Total 7.5 g/dL (6.4-8.2); Sodium Level 137 mmol/L (136-145); Thyroid Stim Hormone (TSH) 0.71 uIU/mL (0.358-3.74)
== END | disposition home or self-care (01) ==
LOC: MTLAB 12:42
PROVIDERS: PCP Family Medicine; Referring Provider Nurse Practitioner Family; Visit Provider Nurse Practitioner Family
DX: R53.83 Other fatigue (principal); R00.2 Palpitations; E55.9 Vitamin D deficiency, unspecified; E53.8 Deficiency of other specified B group vitamins; D64.9 Anemia, unspecified
CPT/HCPCS: 36415; 80053; 82306; 82607; 82728; 83540; 84443; 85025

== ENCOUNTER → 2024-03-17 | Outpatient (CLI) | payer MEDICARE, SELFPAY ==
--- NOTE | 2024-03-17 08:53 | ST.MBS ---
Modified Barium Swallow Patient Information Study Date: 03/17/24 Study Time: 10:30 Direct Billable Minutes: 90 Total Minutes procedure & reportin Diagnosis: Dysphagia R13.10 Referring Physician: DEBBIE HUGGINS Reason for Referral: Objectively assess swallow function, assess risk for aspiration, and determine recommendations for least restrictive diet textures and compensatory strategies to improve safety of swallow. Medical History: PMH: Parkinson's disease (since 2008), shoulder fracture. Pt referred for MBSS from neurology OPEN HEARTH HELPER, Debbie Huggins, INSULATION SPRAYER. Caregiver, Ale, present for the evaluation. Pt reports swallowing difficulty for years characterized by sensation of food/drink becoming caught in her throat. She denies coughing with food/drink. She also denies history of GERD or PNA. Current Diet Ordered: Regular textures / Thin liquids Dentition: Natural Teeth and Missing Teeth Mental Status: WNL Respiratory Status: Oxygenating on Room Air Penetration-Aspiration Scale Penetration-Aspiration Scale: OBJECTIVE ASSESSMENT OF SWALLOW FUNCTION (QUANTITATIVE ? PER TRIAL): PENETRATION / ASPIRATION SCALE (KATE): 1 = does not enter airway 2 = enters airway/above vocal folds/ejected 3 = enters airway/above vocal folds/not ejected 4 = enters airway/contacts vocal folds/ejected 5 = enters airway/contacts vocal folds/not ejected 6 = enters airway/below vocal folds/ejected 7 = enters airway/below vocal folds/not ejected despite effort 8 = enters airway/below vocal folds/no effort VIDEOFLOROSCOPIC SCALE SCORE (KATE): Grade I = aspiration of material that has penetrated into the laryngeal vestibule, intact cough reflex Grade II = aspiration < 10 % of the bolus, intact cough reflex Grade III = aspiration of < 10 % of the bolus, reduced cough reflex or aspiration of > 10 % of the bolus, intact cough reflex Grade IV = aspiration of > 10 % of the bolus, reduced cough reflex Penetration-Aspiration Scale Score Thin Liquid via teaspoon: Result: 2= enter airway/above vocal folds/ejected Thin Liquid via teaspoon Trial 2: Result: 7= enters airways/below vocal folds/not ejected despite effort (reflexive throat clear) Thin Liquid via small single sip: cup: Result: 3= enters airways/above vocal folds/not ejected [place] Thick Liquid via small single sip: cup: Result: 2= enter airway/above vocal folds/ejected Pudding via teaspoon: Result: 1= does not enter airway Thin Liquid via single sip: straw: Result: 5= enters airways/contacts vocal folds/not ejected 1/2 Cookie: Result: 1= does not enter airway Thin Liquid via small single sip: cup Effortful swallow: Result: 2= enter airway/above vocal folds/ejected (tace, SILENT post prandial aspiration of residues in the laryngeal vestibule from previous trials observed before this swallow began) Thin Liquid via small single sip: cup Effortful swallow Trial 2: Result: 2= enter airway/above vocal folds/ejected Thin Liquid via small single sip: cup Effortful swallow Trial 3: Result: 3= enters airways/above vocal folds/not ejected Oral Phase Labial Seal: No Labial Escape Tongue Control During Bolus Hold: Posterior escape of greater than half of bolus Bolus Preparation/Mastication: Slow prolonged chewing/mashing with complete recollection Bolus Transport/Lingual Motion: Delayed initiation of tongue motion Oral Residue: Residue collection on oral structures Pharyngeal Phase Initiation of Pharyngeal Swallow: Bolus head in pyriforms Soft Palate Elevation: No bolus between soft palate and pharyngeal wall Laryngeal Elevation: Partial superior movement thyroid cart/partial apprx aryt-epig petiole Anterior Hyoid Excursion: Partial anterior movement Epiglottic Movement: Complete inversion Laryngeal Vestibule Closure at Height of Swallow: Incomplete; narrow column of air/contrast in laryngeal vestibule Pharyngeal Stripping Wave: Present - diminished Pharyngoesophageal Segment Opening: Parital distension and partial duration; parital obstruction of flow Tongue Base Retraction: Wide column of contrast between tongue base & post. pharyngeal wall Pharyngeal Residue: Collection of residue within or on pharyngeal structures Esophageal Phase Esophageal Clearance: Esophageal retention w/ retrograde flow through pharyngoesophageal seg Diagnosis/Impression Diagnosis: Mild-moderate oropharyngeal dysphagia R13.12 Impression: The oral phase is primarily marked by... -Premature posterior loss most notable with thin by tsp spilling to the laryngeal vestibule prior to swallow onset with resulting aspiration before the swallow. -Piecemeal deglutition of pudding and cookie. -Slowed, but complete mastication. -Delayed tongue motion for A-P transport. The pharyngeal phase is primarily marked by... -Decreased airway closure during to decreased laryngeal elevation and poor anterior hyoid excursion. -Decreased tongue base retraction, pharyngeal stripping wave, and UES opening/duration with mild-moderate pharyngeal residues as a result. -Aspiration of thin liquids via tsp before the swallow with reflexive throat clear that did not fully eject aspirated contrast. Trace, silent post prandial aspiration seen during Thin liquid via single sip: cup with effortful swallow trial, which was likely thin liquid residue remaining in the laryngeal vestibule from previous trials. The esophageal phase is marked by... -Minimal retention of pudding in mid esophagus. Mild retention of cookie in mid esophagus. Recommend alternating bites/sips. Additional finding... -The patient presents with a small, pouch-like collection of barium above a small CP-bar at the level of C6-C7. Barium in this small pouch was observed to have retrograde flow through the upper esophageal sphincter to the pyriforms. AUTOMOTIVE CUSTOMER EXPERIENCE ADVISOR reviewed with radiologist, Dr. Persaud, who confirmed the pouch-like collection to be a small diverticulum. It requires no ENT consult or intervention at this time due to its small size; however, please consider repeat imaging and ENT evaluation in the future if the patient reports worsening symptoms of food/drink caught in her throat. Figure 1. Small, pouch-like collection of barium seen above small CP-bar at the level of C6-C7. Recommendations Diet: Regular Textures (Easy to Chew textures - IDDSI Level 7) and Thin Liquids Compensatory Strategies: Small Bites, Small Sips (Effortful/hard swallows with each sip, Intermittent cough and re-swallow with sips), Slow Rate, Alternate bites/solids and sips/liquids, Sitting upright and Remain sitting upright for 30 minutes after PO intake Supervision: Assist as needed (Caregiver to assist with verbal cues as needed) Recommend Repeat Modified Barium Swallow: TBD Need for Skilled Speech Therapy Services: Yes Comment: -Train the patient in use of strategies to decrease risk for aspiration. -Ongoing assessment of diet tolerance of recommended textures. -Implement oral care regimen. -Train the patient in oropharyngeal exercise program to improve bolus control, airway closure, pharyngeal contraction, and tongue base retraction (lingual resistance, Peyton, effortful, Gloria). Education Completed: 1. Described result of evaluation., 2. Pt understands evaluation & agrees with goals and treatment plan., 4. Family/caregivers understand evaluation & agree w/ goals & tx plan., 7. Pt requires further education on strategies & risks. and 8. Family/caregivers require further education on strategies & risks. Status Active ST Patient: Active Contact Information [facility] Speech Therapy:: Sofia Cruz M.A. CCC-AUTOMOTIVE CUSTOMER EXPERIENCE ADVISOR? Speech-Language Pathologist?? [facility] [address] [place] [address]? [email or web address]?? [phone]
== END | disposition home or self-care (01) ==
PROVIDERS: PCP Family Medicine; Referring Provider Nurse Practitioner; Visit Provider Nurse Practitioner
DX: R13.10 Dysphagia, unspecified (principal)
CPT/HCPCS: 74230; 92611

== ENCOUNTER → 2024-04-10 | Outpatient (CLI) | payer MEDICARE, SELFPAY ==
[2024-04-10 15:27] LABS: Absolute Lymphocyte Count 1.29 X10^3/uL (0.83-4.51); Absolute Neutrophil Count 5.7 X10^3/uL (2.0-7.7); Basophil# 0.03 X10^3/uL; Basophil% 0.4 % (0-1); Eosinophils% 1.3 % (0-5); Hemoglobin 11.2 g/dL (12.0-15.0); Lymphocyte # 1.29 X10^3/ul (0.83-4.51); Lymphocyte % 16.4 % (19-41); Mean Corp Hgb Conc 31.1 g/dL (32-36); Mean Corpuscular Hgb 32.1 pg (27.0-32.0); Mean Corpuscular Volume 103.2 fL (81-99); Mean Platelet Vol. 11.6 fl (6.2-12.0); Monocyte# 0.69 X10^3/uL; Monocyte% 8.8 % (0-10); NRBC Flagged by Analyzer 0 % (0-5); Neutrophil # 5.74 X10^3/uL (2.7-7.7); Neutrophil % 72.8 % (47-70); Platelet Count 207 K/mm3 (150-450); RBC Distribution Width CV 13.8 % (11.6-14.6); RBC Distribution Width SD 52.9 fl (35.1-43.9); Red Blood Count 3.49 M/mm3 (4.2-5.4); White Blood Count 7.9 K/mm3 (4.4-11.0)
[2024-04-10 16:18] LABS: ALB/GLOB Ratio 0.9 RATIO (0.9-2.4); AST(SGOT) 25 U/L (15-37); Alanine Aminotransfer ALT/SGPT 17 U/L (13-56); Albumin, Serum 3.7 g/dL (3.2-5.0); Alkaline Phosphatase 81 U/L (45-117); Anion Gap 6 (5-15); BUN 27 mg/dL (7-18); BUN/Creat Ratio 26.5 RATIO (10-20); Calcium,Total 9.5 mg/dL (8.5-10.1); Chloride 106 mmol/L (98-107); Creatinine, Serum 1.02 mg/dL (0.55-1.02); EST Glomerular Filtration Rate 55 mL/min (>60); Est Glom Filt Rate - Afr Amer 67 mL/min (>60); Ferritin 82 ng/mL (8-252); Globulin 4.3 g/dL (2.2-4.2); Glucose 61 mg/dL (74-106); Iron 63 ug/dL (50-170); Potassium 4.2 mmol/L (3.5-5.1); Sodium Level 139 mmol/L (136-145)
[2024-04-10 17:23] LABS: Vitamin B12 > 2000 pg/mL (211-911); Vitamin D,25 Hydroxy 56.6 ng/mL
[2024-04-12 15:09] LABS: Erythropoietin 13.7 mIU/mL (2.6-18.5)
== END | disposition home or self-care (01) ==
LOC: BFHLAB 11:40
PROVIDERS: PCP Family Medicine; Referring Provider Family Medicine; Visit Provider Family Medicine
DX: R00.2 Palpitations (principal); R53.83 Other fatigue; E55.9 Vitamin D deficiency, unspecified; E53.8 Deficiency of other specified B group vitamins; D64.9 Anemia, unspecified
CPT/HCPCS: 36415; 80053; 82306; 82607; 82668; 82728; 83540; 85025

== ENCOUNTER → 2024-05-23 | Outpatient (CLI) | payer MEDICARE, SELFPAY ==
--- NOTE | 2024-05-23 13:23 | CT_ITS ---
STUDY: CT BRAIN WITHOUT CONTRAST REASON FOR EXAM: Female, 78 years old. DIZZINESS, GAIT IMBALANCE. History of Parkinson''s. RADIATION DOSAGE (If Supplied By Facility): CTDIvol = ( 44.99 ) mGy, DLP = ( 812.98 ) mGycm TECHNIQUE: Transaxial CT imaging of the brain was performed without administration of intravenous contrast material. Individualized dose optimization techniques were used for this CT. COMPARISON: No relevant priors. FINDINGS: Normal soft tissue structures. Normal calvarium. There is mild cerebral atrophy with widening of the extra-axial spaces and ventricular dilatation. There are areas of decreased attenuation within the white matter tracts of the supratentorial brain, consistent with microvascular disease changes. Normal basal ganglia and thalami. Normal brainstem. Normal cerebellum. There is no intracranial hemorrhage. There are no findings of an acute ischemic infarction. Atherosclerotic plaque formation of the cavernous portions of the internal carotid arteries bilaterally. Partial opacification of the anterior right ethmoid sinus. CT/Brain/Head without Contrast IMPRESSION: Chronic involutional changes of the brain. Electronically Signed: Preet Persaud MD at 15:31 EDT ,
== END | disposition home or self-care (01) ==
LOC: CT 13:21
PROVIDERS: PCP Family Medicine; Referring Provider Family Medicine; Visit Provider Family Medicine
DX: R42 Dizziness and giddiness (principal); R26.81 Unsteadiness on feet
CPT/HCPCS: 70450

== ENCOUNTER → 2024-07-24 | Outpatient (CLI) | payer MEDICARE, SELFPAY ==
--- NOTE | 2024-07-24 14:25 | RAD_ITS ---
STUDY: X-RAY CHEST REASON FOR EXAM: Female, 78 years old. SHORTNESS OF BREATH TECHNIQUE: PA and lateral views of the chest. COMPARISON: None. FINDINGS: The lungs are clear and expanded. There is calcified granulomata in the left upper lobe. There is no demonstrated pleural abnormality. Normal size heart. Normal mediastinum and eliza. Normal visualized pulmonary arteries. There is atherosclerotic calcification of the aortic arch. There is demineralization of the osseous structures. Normal visualized ribs, clavicles, and shoulders. There is no demonstrated abnormality of the visualized soft tissue structures of the upper abdomen. RAD/Chest PA and Lateral IMPRESSION: Degenerative changes, as described above. No demonstrated acute cardiopulmonary process. Electronically Signed: Gautam Peoples MD at 14:34 EDT ,
== END | disposition home or self-care (01) ==
PROVIDERS: PCP Family Medicine; Referring Provider Family Medicine; Visit Provider Family Medicine
DX: R06.02 Shortness of breath (principal)
CPT/HCPCS: 71046

== ENCOUNTER → 2024-08-10 | Outpatient (CLI) | payer MEDICARE, SELFPAY | END | disposition home or self-care (01) | LOC: PSN 12:47 | PROVIDERS: PCP Family Medicine; Referring Provider Family Medicine; Visit Provider Family Medicine | DX: R00.2 Palpitations (principal); R06.00 Dyspnea, unspecified | CPT/HCPCS: 93225; 93226 ==

== ENCOUNTER → 2024-10-18 | Outpatient (CLI) | payer MEDICARE, SELFPAY | END | disposition home or self-care (01) | PROVIDERS: PCP Family Medicine; Visit Provider Family Medicine | DX: R30.0 Dysuria (principal) | CPT/HCPCS: 87086 ==

== ENCOUNTER → 2025-02-21 | Outpatient (CLI) | payer MEDICARE, SELFPAY ==
[2025-02-21 17:49] LABS: Absolute Lymphocyte Count 1.57 X10^3/uL (0.83-4.51); Absolute Neutrophil Count 4.8 X10^3/uL (2.0-7.7); Basophil# 0.03 X10^3/uL; Basophil% 0.4 % (0-1); Eosinophils% 1.5 % (0-5); Hematocrit 35.5 % (37-47); Hemoglobin 11.3 g/dL (12.0-15.0); Lymphocyte # 1.57 X10^3/ul (0.83-4.51); Lymphocyte % 22.8 % (19-41); Mean Corp Hgb Conc 31.8 g/dL (32-36); Mean Corpuscular Hgb 32.1 pg (27.0-32.0); Mean Corpuscular Volume 100.9 fL (81-99); Mean Platelet Vol. 10.8 fl (6.2-12.0); Monocyte# 0.37 X10^3/uL; Monocyte% 5.4 % (0-10); NRBC Flagged by Analyzer 0 % (0-5); Neutrophil % 69.8 % (47-70); Platelet Count 270 K/mm3 (150-450); RBC Distribution Width CV 15.1 % (11.6-14.6); RBC Distribution Width SD 56.3 fl (35.1-43.9); Red Blood Count 3.52 M/mm3 (4.2-5.4); White Blood Count 6.9 K/mm3 (4.4-11.0)
[2025-02-21 18:40] LABS: ALB/GLOB Ratio 1.2 RATIO (0.9-2.4); AST(SGOT) 27 U/L (<=31); Alanine Aminotransfer ALT/SGPT 12 U/L (<=34); Albumin, Serum 4.4 g/dL (3.4-4.8); Alkaline Phosphatase 76 U/L (35-104); Anion Gap 11 (5-15); BUN 22 mg/dL (4-19); BUN/Creat Ratio 22.7 RATIO (10-20); Calcium,Total 9.4 mg/dL (7.6-11.0); Carbon Dioxide 26.3 mmol/L (21.0-32.0); Chloride 100 mmol/L (98-108); Creatinine, Serum 0.98 mg/dL (0.70-1.20); EST Glomerular Filtration Rate 58 (>60); Globulin 3.7 g/dL (2.2-4.2); Glucose 117 mg/dL (70-99); Protein, Total 8.1 g/dL (5.9-8.4); Sodium Level 137 mmol/L (133-145); Total Bilirubin 0.42 mg/dL (0.00-1.30)
[2025-02-23 04:07] LABS: Prealbumin 23 mg/dL (9-32)
== END | disposition home or self-care (01) ==
LOC: MTLAB 15:13
PROVIDERS: PCP Family Medicine; Referring Provider Family Medicine; Visit Provider Family Medicine
DX: E46 Unspecified protein-calorie malnutrition (principal); R79.89 Other specified abnormal findings of blood chemistry; Z51.81 Encounter for therapeutic drug level monitoring
CPT/HCPCS: 36415; 80053; 84134; 84443; 85025

== ENCOUNTER → 2025-05-18 | Outpatient (CLI) | payer MEDICARE, SELFPAY ==
[2025-05-18 16:06] LABS: Anion Gap 9 (5-15); BUN 24 mg/dL (4-19); BUN/Creat Ratio 26.1 RATIO (10-20); Calcium,Total 9.5 mg/dL (7.6-11.0); Carbon Dioxide 29.8 mmol/L (21.0-32.0); Chloride 99 mmol/L (98-108); Glucose 118 mg/dL (70-99); Potassium 3.7 mmol/L (3.3-5.1)
== END | disposition home or self-care (01) ==
PROVIDERS: PCP Family Medicine; Referring Provider Nurse Practitioner; Visit Provider Nurse Practitioner
DX: I95.1 Orthostatic hypotension (principal); Z51.81 Encounter for therapeutic drug level monitoring
CPT/HCPCS: 36415; 80048